=== PATIENT | male | born 1945 | race Caucasian/White ===

== ENCOUNTER 2018-01-28 08:54 | Inpatient (IN) | payer OTHER ==
[~2018-01-28] VITALS: Ht 177.8 cm; Wt 83.0 kg
[~2018-01-28 08:54] MED LIST: LOVASTAT20 PO; PRILOSEC 20 MG20 MG PO; STATIN
[2018-01-28 08:58] VITALS: BP 132/81
[2018-01-28] MEDS ORDERED: ASPIR 8181 MG PO (09:08)
[2018-01-28 09:21] LABS: ABSOLUTE BASOPHILS 0.1 thou/uL (0.0-0.2); ABSOLUTE EOSINOPHILS 0.1 thou/uL (0.0-0.7); ABSOLUTE LYMPHOCYTES 1.8 thou/uL (0.8-5.3); ABSOLUTE MONOCYTES 0.5 thou/uL (0.0-1.2); ABSOLUTE NEUTROPHILS 5.8 thou/uL (1.6-8.1); BASOPHILS 1.1 %; EOSINOPHILS 1.1 %; HEMATOCRIT 44.2 % (42.0-52.0); HEMOGLOBIN 14.8 gm/dL (14.0-18.0); LYMPHOCYTES 21.2 %; MCH 32.9 pg (26.0-34.0); MCHC 33.5 g/dL (28.0-37.0); MCV 98.1 fL (80.0-100.0); MONOCYTES 6.2 %; MPV 8.5 fl. (7.2-11.1); NUCLEATED RBCS 0 /100WBC; PLATELET COUNT* 192 thou/uL (150-400); POLYS 70.4 %; RBC 4.51 mil/uL (4.50-6.00); RDW-CV 14.4 % (10.5-14.5); WBC 8.3 thou/uL (4.0-11.0)
[2018-01-28 09:23] LABS: URINE BILIRUBIN NEGATIVE (Negative); URINE BLOOD TRACE (Negative); URINE CLARITY CLEAR; URINE COLOR YELLOW; URINE GLUCOSE-RANDOM NEGATIVE (Negative); URINE KETONES NEGATIVE (Negative); URINE LEUKOCYTES-REFLEX NEGATIVE (Negative); URINE NITRITE-REFLEX NEGATIVE (Negative); URINE PROTEIN NEGATIVE (Negative); URINE SPECIFIC GRAVITY >= 1.030 (1.005-1.030); URINE UROBILINOGEN 0.2 E.U./dl (0.2-1.0)
[2018-01-28 09:31] LABS: ANION GAP 6 mmol/L (7-16); APTT 25.5 Seconds (25.0-31.3); BUN 34 mg/dL (7-18); CALCIUM 9.2 mg/dL (8.5-10.1); CHLORIDE 104 mmol/L (98-107); CO2 29 mmol/L (21-32); GLUCOSE 110 mg/dL (70-99); INR 1.1; POTASSIUM 4.1 mmol/L (3.5-5.1); PROTIME 10.7 Seconds (9.20-11.50); SODIUM 139 mmol/L (136-145)
[2018-01-28 09:48] LABS: ALBUMIN 3.9 g/dL (3.4-5.0); ALKALINE PHOSPHATASE 60 U/L (46-116); CK-MB MASS 1.1 ng/mL (<0.5-3.6); NT-PRO BRAIN NAT PEPTIDE 34 pg/mL (<300); SGOT 17 U/L (15-37); SGPT 26 U/L (30-65); TOTAL BILIRUBIN 0.5 mg/dL (<0.1-1.0); TOTAL PROTEIN 7.3 g/dL (6.4-8.2); TROPONIN-I LEVEL <0.06 ng/mL (<0.06)
[2018-01-28 10:44] VITALS: BP 124/77
[2018-01-28 11:51] VITALS: BP 135/76
--- NOTE | 2018-01-28 12:07 | EKG ---
[place] [address] ELECTROCARDIOGRAM REPORT Name: MATTY BENAVIDEZ Room: [address] IN .R.#: [id number] Admission: 01/28/18 Attend Phys: Dar Chavez MD Discharge: Date of : 41 Report #: [id number] THIS REPORT FOR: //name// [facility] ED Test Date: 2018-01-28 Test Time: 09:04:19 Pat Name: MATTY BENAVIDEZ Department: Room: [facility] Gender: Record Pressman: Wendy GREEN : 1945 Requested By: Julio Camacho Order Number: [id number] MD: Logan Hoffman Measurements Intervals [place] Rate: 67 P: 44 MD: 157 QRS: -4 QRSD: 92 T: 30 QT: 390 QTc: 412 Interpretive Statements Sinus rhythm Abnormal R-wave progression, early transition No previous ECG available for comparison Electronically Signed On 01-28-2018 12:07:39 CDT by Logan Hoffman [email or web address] <ELECTRONICALLY SIGNED> By: Logan Hoffman MD, [facility] 01/28/18 1207 0904 0904 Logan Hoffman MD, [facility] /EPI
[2018-01-28 16:02] VITALS: BP 131/74
[2018-01-28 20:00] VITALS: BP 138/76
[2018-01-29] VITALS (7 sets, daily range): BP systolic 121–143; BP diastolic 74–82
[2018-01-29 05:19] LABS: ALBUMIN 3.5 g/dL (3.4-5.0); ALKALINE PHOSPHATASE 56 U/L (46-116); ANION GAP 4 mmol/L (7-16); BUN 31 mg/dL (7-18); CALCIUM 8.1 mg/dL (8.5-10.1); CHLORIDE 103 mmol/L (98-107); CHOLESTEROL 230 mg/dL (<200); CO2 29 mmol/L (21-32); GLUCOSE 110 mg/dL (70-99); HDL CHOLESTEROL 43 mg/dL (>40); LDL CHOLESTEROL 169 mg/dL (<100); POTASSIUM 4.1 mmol/L (3.5-5.1); SGOT 16 U/L (15-37); SGPT 22 U/L (30-65); SODIUM 136 mmol/L (136-145); TC:HDL 5.3 Ratio (Not establshd); TOTAL BILIRUBIN 0.4 mg/dL (<0.1-1.0); TOTAL PROTEIN 6.5 g/dL (6.4-8.2); TRIGLYCERIDE 90 mg/dL (<150); VLDL 18 mg/dL (<40)
[2018-01-29 05:21] LABS: SERUM ASSESSMENT Clear
[2018-01-29 23:05] LABS: GLYCOHEMOGLOBIN (HGB A1C) 5.4 % (4.8-5.6)
[2018-01-30 04:00] VITALS: BP 132/78
[2018-01-30 08:00] VITALS: BP 140/72
[2018-01-30] MEDS ORDERED: ASA5UEC PO (10:00)
[2018-01-30] MEDS ORDERED: ATORVASTATIN CA40 MG PO (10:00)
[2018-01-30 11:34] VITALS: BP 115/71
[2018-01-30 12:07] VITALS: BP 115/71
[2018-01-30 15:44] VITALS: BP 124/73
--- NOTE | 2018-01-30 16:56 | 2DMMODE ---
[place] [address] 2 D/M-MODE ECHOCARDIOGRAM Name: MATTY BENAVIDEZ Room: [address] IN [facility]#: [id number] Admission: 01/28/18 Attend Phys: Dar Chavez, Discharge: Date of : 41 Date of Service: 01/30/18 1428 Report #: [id number] THIS REPORT FOR: //name// APPROVED REPORT Study performed: 01/30/2018 10:59:03 EXAM: Comprehensive 2D, Doppler, and color-flow Echocardiogram Patient Location: In-Patient Room #: [facility] Status: routine BSA: 2.00 HR: 60 bpm BP: 140/72 mmHg Rhythm: NSR Other Information Study Quality: Good Indications CVA/TIA Echo Enhancing Agent Indication: Rule out Shunt Agent(s) / Amount(s) Used: Agitated Saline 10 cc 2D Dimensions LVEF(%): 80.73 (>50%) IVSd: 12.41 (7-11mm) LVOT Diam: 19.44 (18-24mm) LVDd: 44.66 mm PWd: 10.43 (7-11mm) Ascending Ao: 31.65 (22-36mm) LVDs: 22.68 (25-40mm) Aortic Root: 26.96 mm Sutton's LVEF: 80.73 % Volumes Left Atrial Volume (Systole) LA ESV Index: 18.40 mL/m2 Aortic Valve AoV Peak Will.: 1.45 m/s AO Peak Gr.: 8.46 mmHg LVOT Max P.43 mmHg AO Mean Gr.: 4.29 mmHg LVOT Mean P.78 mmHg LVOT Max V: 1.45 m/s AO V2 VTI: 26.37 cm LVOT Mean V: 0.87 m/[place] [address] 2 D/M-MODE ECHOCARDIOGRAM Name: MATTY BENAVIDEZ Room: [address] IN [facility].#: [id number] Admission: 01/28/18 Attend Phys: Dar Chavez, Discharge: Date of : 41 Date of Service: 01/30/18 1428 Report #: [id number] LAYNE (VTI): 3.20 cm2 LVOT V1 VTI: 28.48 cm Mitral Valve E/A Ratio: 1.16 MV Decel. Time: 261.06 ms MV E Max Will.: 0.81 m/s MV PHT: 75.71 ms MVA (PHT): 2.91 cm2 TDI E/Lateral E': 7.36 E/Medial E': 8.10 Medial E' Will.: 0.10 m/s Lateral E' Will.: 0.11 m/s Pulmonary Valve PV Peak Will.: 0.66 m/s PV Peak Gr.: 1.74 mmHg Tricuspid Valve RAP Estimate: 5.00 mmHg TR Peak Gr.: 27.96 mmHg RVSP: 33.00 mmHg PA Pressure: 33.00 mmHg Left Ventricle The left ventricle is normal size. There is normal LV segmental wall motion. There is normal left ventricular wall thickness. Left ventricular systolic function is normal. The left ventricular ejection fraction is within the normal range. LVEF is 60-65%. The left ventricular diastolic function is normal. Right Ventricle The right ventricle is normal size. The right ventricular systolic function is normal. Atria The left atrium size is normal. Interatrial septum is intact without evidence of ASD or PFO. The right atrium size is normal. Aortic Valve Mild aortic valve sclerosis. No aortic regurgitation is present. There is no aortic valvular stenosis. Mitral Valve Mild mitral annular calcification. Trace mitral regurgitation. No evidence of mitral valve stenosis[place] [address] 2 D/M-MODE ECHOCARDIOGRAM Name: MATTY BENAVIDEZ Room: [address] M.R.#: [id number] Admission: 01/28/18 Attend Phys: Dar Chavez, Discharge: Date of : 41 Date of Service: 01/30/18 1428 Report #: [id number] The tricuspid valve is normal in structure. Trace tricuspid regurgitation. Mild pulmonary hypertension. Pulmonic Valve The pulmonary valve is normal in structure. Trace pulmonic regurgitation. Great Vessels The aortic root is normal in size. IVC is normal in size and collapses with >50% inspiration Pericardium There is no pericardial effusion. <Conclusion> The left ventricle is normal size. There is normal left ventricular wall thickness. Left ventricular systolic function is normal. The left ventricular ejection fraction is within the normal range. LVEF is 60-65%. The left ventricular diastolic function is normal. The right ventricle is normal size. The left atrium size is normal. Mild aortic valve sclerosis. No aortic regurgitation is present. There is no aortic valvular stenosis. Mild mitral annular calcification. Trace mitral regurgitation. The tricuspid valve is normal in structure. IVC is normal in size and collapses with >50% inspiration There is no pericardial effusion. There is normal LV segmental wall motion. <ELECTRONICALLY SIGNED> By: Eze Oviedo MD, FACC 01/30/18 1428 1428 1428 Eze Oviedo MD, FACC /INF
== END 2018-01-30 17:12 | disposition home or self-care (01) | DRG 64 ==
LOC: M.ERS 08:54 → M.TBA-ER 10:20 → M.2W 10:20
PROVIDERS: Family Medicine; ADMIT Internal Medicine
PROC: 4A00X4Z Measurement of Central Nervous Electrical Activity, External Approach (ICD-10-PCS; principal; 2018-01-29)
DX: I63.9 Cerebral infarction, unspecified (principal); G92 Toxic encephalopathy; G45.4 Transient global amnesia; I10 Essential (primary) hypertension; E78.00 Pure hypercholesterolemia, unspecified; K21.9 Gastro-esophageal reflux disease without esophagitis; J98.4 Other disorders of lung; F17.210 Nicotine dependence, cigarettes, uncomplicated; Z90.49 Acquired absence of other specified parts of digestive tract; Z79.82 Long term (current) use of aspirin; Z79.899 Other long term (current) drug therapy; Z82.3 Family history of stroke

== ENCOUNTER 2019-05-30 10:12 | Emergency (ER) | payer OTHER ==
[~2019-05-30] VITALS: Ht 177.8 cm; Wt 81.7 kg
[~2019-05-30 10:12] MED LIST changes: +ASA5UEC PO; +ASPIR 8181 MG PO; +ATORVASTATIN CA40 MG PO
[2019-05-30] MEDS ORDERED: ASA81BEC PO (10:29)
[2019-05-30] MEDS ORDERED: PROAIR HFA8.5 GM INH (10:29)
[2019-05-30] MEDS ORDERED: ZESTRIL10 MG PO (10:30)
[2019-05-30 11:16] LABS: URINE BILIRUBIN NEGATIVE (Negative); URINE BLOOD NEGATIVE (Negative); URINE CLARITY CLEAR; URINE COLOR YELLOW; URINE GLUCOSE-RANDOM NEGATIVE (Negative); URINE KETONES NEGATIVE (Negative); URINE LEUKOCYTES-REFLEX NEGATIVE (Negative); URINE NITRITE-REFLEX NEGATIVE (Negative); URINE PROTEIN NEGATIVE (Negative); URINE SPECIFIC GRAVITY >= 1.030 (1.005-1.030); URINE UROBILINOGEN 0.2 E.U./dl (0.2-1.0)
[2019-05-30 11:33] LABS: ABSOLUTE BASOPHILS 0.1 thou/uL (0.0-0.2); ABSOLUTE EOSINOPHILS 0.2 thou/uL (0.0-0.7); ABSOLUTE MONOCYTES 0.5 thou/uL (0.0-1.2); ABSOLUTE NEUTROPHILS 4.9 thou/uL (1.6-8.1); BASOPHILS 1.4 %; EOSINOPHILS 2.9 %; HEMOGLOBIN 14.9 gm/dL (14.0-18.0); LYMPHOCYTES 25.9 %; MCH 32.5 pg (26.0-34.0); MCHC 34.7 g/dL (28.0-37.0); MCV 93.5 fL (80.0-100.0); MONOCYTES 6.5 %; NUCLEATED RBCS 0 /100WBC; PLATELET COUNT* 180 thou/uL (150-400); POLYS 63.3 %; RBC 4.59 mil/uL (4.50-6.00); RDW-CV 13.8 % (10.5-14.5); WBC 7.7 thou/uL (4.0-11.0)
[2019-05-30 11:42] LABS: CALCIUM 9.3 mg/dL (8.5-10.1); CREATININE 1.1 mg/dL (0.6-1.3); POTASSIUM 3.7 mmol/L (3.5-5.1)
[2019-05-30 11:46] LABS: APTT 25.2 Seconds (25.0-31.3); INR 1.1; PROTIME 11.3 Seconds (9.20-11.50)
[2019-05-30 11:47] LABS: ALBUMIN 3.6 g/dL (3.4-5.0); TOTAL BILIRUBIN 0.6 mg/dL (<0.1-1.0); TOTAL PROTEIN 6.9 g/dL (6.4-8.2)
[2019-05-30 14:11] VITALS: BP 123/78
--- NOTE | 2019-05-30 14:16 | EKG ---
[place] [address] ELECTROCARDIOGRAM REPORT Name: MATTY BENAVIDEZ Room: [facility]#: [id number] Admission: 05/30/19 Attend Phys: Discharge: 05/30/19 Date of : 41 Report #: [id number] THIS REPORT FOR: //name// [facility] ED Test Date: 2019-05-30 Test Time: 11:13:56 Pat Name: MATTY BENAVIDEZ Department: Room: Gender: M Client Success Manager: : 1945 Requested By: Gabrielle Elliott Order Number: [id number] MD: Eze Oviedo Measurements Intervals [place] Rate: 87 P: 65 ID: [id number] QRS: -4 QRSD: 87 T: 39 QT: 363 QTc: 437 Interpretive Statements Sinus rhythm Abnormal R-wave progression, early transition Compared to ECG 01/28/2018 09:04:19 No significant changes Electronically Signed On 05-30-2019 14:15:54 MENTAL HEALTH ASSISTANT by Eze Oviedo [email or web address] <ELECTRONICALLY SIGNED> By: Eze Oviedo MD, [facility] 05/30/19 1415 1113 111 Eze Oviedo MD, FAC /EPI
== END 2019-05-30 14:12 | disposition home or self-care (01) ==
LOC: M.ERS 10:12
PROVIDERS: Nurse Practitioner Family
DX: R41.82 Altered mental status, unspecified (principal); R53.1 Weakness; I10 Essential (primary) hypertension; E78.00 Pure hypercholesterolemia, unspecified; K21.9 Gastro-esophageal reflux disease without esophagitis; Z86.73 Personal history of transient ischemic attack (TIA), and cerebral infarction without residual deficits